=== PATIENT | male | born 1960 | race Caucasian/White ===

== ENCOUNTER 2021-09-27 15:51 | Emergency (ER) | payer MEDICAID, SELFPAY ==
[2021-09-27 16:00] VITALS: BP 149/90; PULSE 92; RESP 18; TEMP 35.9; O2SAT 95; BMI 28.1
--- NOTE | 2021-09-27 17:08 | EDS_ITS ---
HPI History of Present Illness Chief Complaint: Lower Extremity Injury Informant: patient Narrative Narrative: This is an overall healthy patient. He has been having 6 or 8 weeks of pain in his right buttock that radiates down to the back of the right knee. He has had microdiscectomy in the . But he is not having back pain now. He is not having numbness tingling or weakness. He is not having bowel or bladder dysfunction. He has no history of cancer. No recent infections or fevers. He was seen 3 days ago at another hospital. He said he had a CAT scan of his lower body with dye that showed all the blood vessels were good. There were no fractures. He also had an ultrasound that showed no blood clot. He was started on gabapentin. He states he has times where the pain is not bad and other times where it flores significantly. He is looking for some relief. He states it started after he did a lot more physical work than normal. He had to repair and move a refrigerator, change a water heater, and cut a lot of wood. No specific injury occurred but he states with each episode he would aggravate this again. Patient is overall healthy. He has no history of medical problems other than his back pain with microdiscectomy in the . He takes no prescribed medications. He has no allergies. PFSH PFS Medical History no medical history Home Medications gabapentin 300 mg PO/SL TID 09/27/21 [History Last Taken Unknown] oxycodone-acetaminophen [Percocet] 1 tab PO Q6H PRN 3 Days #12 tab 09/27/21 [Rx Last Taken Unknown] prednisone 60 mg PO DAILY #15 tab 09/27/21 [Rx Last Taken Unknown] Allergy/AdvReac Type Severity Reaction Status Date / Time No Known Allergies Allergy Verified 09/27/21 16:21 Family History no significant family his Social History Smoking Status: Current every day smoker tobacco type: cigarettes ROS ROS ED Constitutional Constitutional ED: Denies chills or fever(s) Eyes Eyes: Denies blurry vision ENT ENT ED: Denies rhinorrhea or sore throat Cardiovascular Cardiovascular: Denies chest pain or palpitations Respiratory/Chest Respiratory/Chest: Denies cough or sputum Gastrointestinal Gastrointestinal: Denies abdominal pain, constipation, diarrhea, melena, nausea or vomiting Genitourinary Genitourinary ED: Denies dysuria, hematuria or urinary frequency Musculoskeletal Musculoskeletal: Reports other Details: See history of present illness. ; Denies back pain or neck pain Integumentary Denies abscess, Abrasions or rash Neurologic Neurologic: Denies headache(s), paresthesias or weakness Endocrine Endocrinology: Denies polydipsia or polyuria Allergic/Immunologic Allergic/Immunologic ED: Denies mouth swelling or urticaria EXAM Physical Exam Const Vital Signs: 09/27/21 16:00 Temperature 96.7 F L Temperature Source Temporal Pulse Rate 92 Respiratory Rate 18 Blood Pressure 149/90 H Blood Pressure Mean 109 Pulse Ox 95 Oxygen Delivery Method Room Air Positive well nourished and well developed General Appearance ED: well developed; Negative for cyanotic or diaphoretic HEENT Reports moist mucous membranes Eyes General Eye ED: Negative for pale conjunctiva or scleral icterus Neck no JVD Resp normal respiratory effort Cardio regular rate and regular rhythm GI normal to inspection, nondistended, normoactive bowel sounds, non-tender and no masses GI Narrative: No mass or bruit. Abdomen is completely benign. Palpation: soft; Negative for mass Back/Spine no CVA tenderness Back/Spine Narrative: I do not see lumbar scarring. But patient states he had a microdiscectomy which likely explains this. He does not have lumbar paraspinal or sacral tenderness. He does have tenderness in the right buttock/sciatic notch. Cervical Spine: Negative for cervical spine tenderness Thoracic Spine / Upper Back: Negative for thoracic spinal tenderness Lumbar Spine / Lower Back: Negative for lumbar spinal tenderness Extremity normal to inspection Extremity Narrative: Patient was disrobed. There is no erythema or abscess. There is no cords. No distended veins. He has some soreness in the posterior thigh and back of the knee but he states mostly the pain just flores in that a cady. I do not see any vesicles at all. He denies ever having a rash. Peripheral pulses are also strong and normal. No cyanosis. Normal capillary refill. No signs at all of vascular insufficiency Neuro oriented x3 Neuro Narrative: No weakness. He has +2 patellar and +1 bilateral Achilles. Sensation is intact. Sensorium / Orientation: alert Psych mental status grossly normal Skin no rashes or lesions noted and no wounds MDM MDM MDM Narrative Medical decision making narrative: Patient has history and exam consistent with sciatica. He has already had CT scan and ultrasounds. I do not think further imaging will help. I do not think blood work is needed. I did online prescribing report that shows no controlled substances at all. I will get him a short course of Percocet. Because he has been having off-and-on symptoms for over 6 weeks, I will start him on a course of prednisone. Discharge Plan Triage Chief Complaint: Lower Extremity Injury ED Provider: Ambrosio Ford Dx/Rx/DC Orders Clinical Impression: Right sided sciatica Instructions: ED Sciatica Prescriptions: New prednisone 20 MG tablet 60 mg PO DAILY Qty: 15 RF: 0 oxycodone-acetaminophen [Percocet] 5-325 mg tablet 1 tab PO Q6H PRN (Reason: pain) 3 Days Qty: 12 RF: 0 No Action gabapentin 300 mg PO/SL TID RF: 0 Primary Care Provider: Care Physician,No Primary Referrals: Sonia Cartagena DO [STAFF PHYSICIAN] - 1 Week if not improving Care Physician,No Primary [Primary Care Provider] - Disposition Disposition: Home, Self Care
[2021-09-27] MEDS: Morphine 4 MG/ML Syringe IM (17:23)
[2021-09-27] MEDS: Ketorolac 15 MG/ML Vial IM (17:23)
== END 2021-09-27 18:01 | disposition home or self-care (01) ==
PROVIDERS: Emergency Provider Emergency Medicine; Visit Provider Emergency Medicine
DX: M54.31 Sciatica, right side (principal); F17.210 Nicotine dependence, cigarettes, uncomplicated
CPT/HCPCS: 96372; 99282